=== PATIENT | female | born 1995 | race Caucasian/White ===

== ENCOUNTER 2017-07-12 19:49 | Emergency (ER) | payer OTHER ==
--- NOTE | 2017-07-12 20:13 | EDPHY ---
H & P Stated Complaint: Headache - poss altitude sickness Time Seen by Provider: 07/12/17 20:03 HPI/ROS: CHIEF COMPLAINT: Headache, fatigue HISTORY OF PRESENT ILLNESS: 22-year-old female history of chronic migraine, visiting from [place], arrived yesterday for her boyfriend's college graduation , went on a approximately 1.5 hr hike today. While in hike she felt fatigued, dyspneic, developed a non thunderclap right frontotemporal headache which feels like her usual migraine. She has oxycodone for breakthrough headache however this did not alleviate her symptoms. She spoke with her family members 1 of whom is in the ER physician recommend she go to the ER. She went to urgent care and they recommend she come to the ER. No calf pain or cramping. Her current headache feels like her usual migraine, not thunderclap, not worst headache of life. REVIEW OF SYSTEMS: A ten point review of systems was performed and is negative with the exception of the items mentioned in the HPI PAST MEDICAL & SURGICAL HISTORY: Chronic migraine headache. PCOS. IUD. No exogenous estrogen use. SOCIAL HISTORY: Nonsmoker. No illicit drug use. Visiting from [place]. PHYSICAL EXAM (Prior to examination, patient consented to physical exam, hands were washed and my usual and customary physical exam procedures followed) 1) GENERAL: Well-developed, well-nourished, alert and oriented. Appears to be in no acute distress. 2) HEAD: Normocephalic, atraumatic 3) HEENT: Pupils equal, round, reactive to light bilaterally. Sclera anicteric. Funduscopic examination grossly unremarkable. Positive photophobia. Nasopharynx, oropharynx, clear, no lesions. Ears bilaterally with normal tympanic membranes. 4) NECK: Full range of motion, no meningeal signs. 5) LUNGS: Clear auscultation bilaterally, no wheezes, no rhonchi, no retractions. 6) HEART: Regular rate and rhythm, no murmur, no heave, no gallop. 7) ABDOMEN: No guarding, no rebound, no focal tenderness, negative McBurney's, negative Arzola's, negative Rovsing's, negative peritoneal sign, 8) MUSCULOSKELETAL: Moving all extremities, no focal areas of tenderness, no obvious trauma. No peripheral edema or discoloration. Negative Homans. No palpable cord. 9) BACK: No CVA tenderness, no midline vertebral tenderness, no fluctuance, no step-off, no obvious trauma, no visual or palpable abnormality. 10) SKIN: No rash, no petechiae. 11) Psychiatric: Patient is oriented X 3, there is no agitation. 12) NEURO: Awake, alert, and oriented to person, place and time. Answers questions appropriately. There were no obvious focal neurologic abnormalities. No cerebellar dysfunction. Cranial nerves 2 through to 12 intact. Normal steady gait. Upper and lower extremities bilaterally with strength 5 / 5, reflexes 2+. DIFFERENTIAL DIAGNOSIS: In no particular order, including but not limited to subarachnoid hemorrhage, migraine headache, tension headache and infectious causes such as meningitis, acute mountain sickness - Personal History Current Tetanus/Diphtheria Vaccine: Yes Current Tetanus Diphtheria and Acellular Pertussis (TDAP): Yes - Medical/Surgical History Hx Asthma: No Hx Chronic Respiratory Disease: No Hx Diabetes: No Hx Cardiac Disease: No Hx Renal Disease: No Hx Cirrhosis: No Hx Alcoholism: No Hx HIV/AIDS: No Hx Splenectomy or Spleen Trauma: No Other PMH: Lupus, migraines. - Social History Smoking Status: Never smoked Constitutional: Initial Vital Signs Temperature (C) 36.5 C 07/12/17 19:54 Heart Rate 102 H 07/12/17 19:54 Respiratory Rate 16 07/12/17 19:54 Blood Pressure 122/84 H 07/12/17 19:54 O2 Sat (%) 93 07/12/17 19:54 O2 Delivery Mode Room Air Allergies/Adverse Reactions: No Known Allergies Allergy (Unverified 07/12/17 19:58) Home Medications: Medication Instructions Recorded Metformin HCl 07/12/17 Plaquenil 200 mg (*) 07/12/17 Spironolactone 07/12/17 Topamax 07/12/17 buPROPion 07/12/17 Medical Decision Making ED Course/Re-evaluation: 8:19 p.m.: Patient has a nonfocal neurologic exam and history of chronic migraine headache. At this time we discussed possibility of acute mountain sickness verses migraine headache which may have been exacerbated by the altitude, today's hot weather , exertional activity and less than sufficient hydration. Will administer IV hydration, check basic laboratory studies, administer antiemetic. 9:27 p.m.: Re-evaluation, she is resting comfortably, states her pain is a 1/ 10. She is able tolerate oral intake. Her nausea is resolved. Heart rate in the 80s. I think that pathology such as pulmonary embolus is less than likely the etiology of her symptoms and more than likely migraine with concurrent exposure to altitude, warm temperatures, volume depletion. I stressed the importance of hydration. Regarding her headache I think that intracranial hemorrhage, subarachnoid hemorrhage, less than likely this patient. I do not think that imaging studies are indicated in the presence of chronic migraine and nonfocal neurologic exam. I do not think that imaging studies are indicated at this time. Given usual and customary headache precautions and instructions. She feels comfortable being discharged. - Data Points Laboratory Results: Laboratory Results 07/12/17 20:30 07/12/17 20:30 07/12/17 07/12/17 07/12/17 20:30 20:30 20:30 WBC 12.20 10^3/uL H 10^3/uL (3.80-9.50) RBC 4.73 10^6/uL 10^6/uL (4.18-5.33) Hgb 14.1 g/dL g/dL (12.6-16.3) Hct 42.0 % % (38.0-47.0) MCV 88.8 fL fL (81.5-99.8) MCH 29.8 pg pg (27.9-34.1) MCHC 33.6 g/dL g/dL (32.4-36.7) RDW 11.7 % % (11.5-15.2) Plt Count 333 10^3/uL 10^3/uL (150-400) MPV 10.5 fL fL (8.7-11.7) Neut % (Auto) 52.1 % % (39.3-74.2) Lymph % (Auto) 37.0 % % (15.0-45.0) [place] % (Auto) 8.7 % % (4.5-13.0) Eos % (Auto) 1.6 % % (0.6-7.6) Baso % (Auto) 0.2 % L % (0.3-1.7) Nucleat RBC Rel Count 0.0 % % (0.0-0.2) Absolute Neuts (auto) 6.35 10^3/uL 10^3/uL (1.70-6.50) Absolute Lymphs (auto) 4.51 10^3/uL H 10^3/uL (1.00-3.00) Absolute Monos (auto) 1.06 10^3/uL H 10^3/uL (0.30-0.80) Absolute Eos (auto) 0.20 10^3/uL 10^3/uL (0.03-0.40) Absolute Basos (auto) 0.03 10^3/uL 10^3/uL (0.02-0.10) Absolute Nucleated RBC 0.00 10^3/uL 10^3/uL (0-0.01) Immature Gran % 0.4 % % (0.0-1.1) Immature Gran # 0.05 10^3/uL 10^3/uL (0.00-0.10) Sodium 142 mEq/L mEq/L (135-145) Potassium 3.8 mEq/L mEq/L (3.5-5.2) Chloride 104 mEq/L mEq/L (97-110) Carbon Dioxide 20 mEq/l L mEq/l (22-31) Anion Gap 18 mEq/L H mEq/L (8-16) BUN 11 mg/dL mg/dL (7-23) Creatinine 0.8 mg/dL mg/dL (0.6-1.0) Estimated GFR > 60 Glucose 87 mg/dL mg/dL (70-100) Calcium 9.5 mg/dL mg/dL (8.5-10.4) Beta HCG, Qual NEGATIVE Medications Given: Discontinued Medications Sodium Chloride (Ns) 1,000 mls @ 0 mls/hr IV ONCE ONE PRN Reason: Wide Open Stop: 07/12/17 20:17 Last Admin: 07/12/17 20:31 Dose: 1,000 mls Ketorolac Tromethamine (Toradol) 15 mg IVP EDNOW ONE Stop: 07/12/17 21:13 Last Admin: 07/12/17 21:21 Dose: 15 mg Metoclopramide HCl (Reglan Injection) 10 mg IVP EDNOW ONE Stop: 07/12/17 20:17 Last Admin: 07/12/17 20:32 Dose: 10 mg Departure - Departure Disposition: Home, Routine, Self-Care Clinical Impression: Altitude illness Qualifiers: Encounter type: initial encounter Qualified Code(s): T70.29XA - Other effects of high altitude, initial encounter Headache Qualifiers: Headache type: other headache syndrome Qualified Code(s): G44.89 - Other headache syndrome Condition: Good Instructions: Migraine Headache (ED), Mountain Sickness (ED) Additional Instructions: RETURN TO THE ED IMMEDIATELY IF YOUR HEADACHE WORSENS, IF YOU DEVELOP A FEVER, NECK PAIN OR NECK STIFFNESS, OR IF YOU BECOME CONFUSED OR ABNORMALLY DROWSY. Please stay hydrated, avoid ascending to higher altitude. Referrals: Follow-up, with your neurologist in [place] when you return [Other] - As per Instructions
[2017-07-12] MEDS ORDERED: METOCLOPRAMIDE 10 MG/2 ML VIAL IVP ONE (20:16)
[2017-07-12] MEDS ORDERED: NS 1,000 ML IV ONE (20:16)
[2017-07-12 20:53] LABS: PLATELET COUNT 333 10^3/uL (150-400)
[2017-07-12] MEDS ORDERED: KETOROLAC 15 MG/1 ML SDV IVP ONE (21:12)
[2017-07-12 21:23] VITALS: BP 119/67
[2017-07-12] MEDS ORDERED: DEXAMETHASONE 10 MG/ML VIAL IVP ONE (21:27)
== END 2017-07-12 21:39 | disposition home or self-care (01) ==
DX: G44.89 Other headache syndrome (principal); T70.29XA Other effects of high altitude, initial encounter
CPT/HCPCS: 96374; J1100; J1885; J2765